=== PATIENT | male | born 1945 | race Caucasian/White ===

== ENCOUNTER → 2023-02-25 12:08 | Outpatient (BNVA) | payer MEDICARE, OTHER, SELFPAY | PROVIDERS: Visit Provider Internal Medicine Cardiovascular Disease | DX: R07.9 Chest pain, unspecified (principal); Z95.0 Presence of cardiac pacemaker; I71.40 Abdominal aortic aneurysm, without rupture, unspecified; I10 Essential (primary) hypertension; E11.9 Type 2 diabetes mellitus without complications; E78.5 Hyperlipidemia, unspecified; I48.91 Unspecified atrial fibrillation; F03.90 Unspecified dementia, unspecified severity, without behavioral disturbance, psychotic disturbance, mood disturbance, and anxiety | CPT/HCPCS: 93005; 99205 ==

== ENCOUNTER 2023-03-10 13:23 | Outpatient (CLI) | payer MEDICARE, OTHER, SELFPAY ==
--- NOTE | 2023-03-10 13:45 | USCV_ITS ---
Oleg Gaspar Age: 77 Gender: M : 1945 Exam Date: 03/10/2023 14:11 Ordering Phys: Angelito Callahan MD ([email or web address]) Technologist: CT Exam Location: [facility] [place] Indication: afib BP: 135 / 79 HR: 68 Rhythm: Sinus Technical Quality: Adequate MEASUREMENTS (Male / Female) Normal Values 2D ECHO LV Chamber Size 5.9 cm RV Chamber Size 3.7 cm LVOT Diameter 2.5 cm LV Ejection Fraction MOD 2C 53.6 % LV Ejection Fraction 2C AL 53.2 % LA Diameter 4.8 cm LA Width 5.1 cm LA Height 6.0 cm RA Width 3.5 cm RA Height 5.6 cm Aorta at Sinotubular Diameter 3.4 cm M-MODE Aortic Annulus Diameter 4.2 cm LA Ao Ratio MM 1.4 DOPPLER AV Peak Velocity 190.0 cm/s LVOT Peak Velocity 97.0 cm/s AV Area Cont Eq vti 2.5 cm squared AV Area Cont Eq pk 2.6 cm squared MV Area PHT 3.6 cm squared Mitral E to A Ratio 2.4 MV E' Velocity 49.5 cm/s Mitral E to MV E' Ratio 11.9 Mitral E to LV E' Lateral Ratio 8.7 Mitral E to LV E' Septal Ratio 18.5 TR Peak Velocity 272.0 cm/s TR Peak Gradient 29.6 mmHg TV Peak E Velocity 103.0 cm/s Right Atrial Pressure 3.0 mmHg Pulmonary Artery Systolic Pressu 32.6 mmHg FINDINGS Left Ventricle Diffuse hypokinesia of the left ventricular ejection fraction of 45% (visual).mild left ventricular hypertrophy. Grade I/IV diastolic dysfunction (abnormal relaxation filling pattern), normal to mildly elevated filling pressures. Right Ventricle Normal right ventricular size and systolic function. Catheter/pacemaker wire in the right ventricular cavity. Right Atrium Mildly dilated. Catheter/pacemaker wire in the right atrial cavity. Left Atrium Mildly dilated Mitral Valve Thickened mitral valve. Aortic Valve Thickened aortic valve. Trace to mild aortic valve regurgitation. Tricuspid Valve Trace tricuspid valve regurgitation. Pulmonic Valve No gross abnormalities noted Pericardium No pericardial effusion. Aorta Normal aortic annulus size. IVC Inferior vena cava not visualized. CONCLUSIONS Diffuse hypokinesia of the left ventricular ejection fraction of 45% (visual).mild left ventricular hypertrophy. Grade I/IV diastolic dysfunction (abnormal relaxation filling pattern), normal to mildly elevated filling pressures. Mild biatrial enlargement. Thickened aortic valve. Trace to mild aortic valve regurgitation. Trace tricuspid valve regurgitation. Estimated pulmonary artery peak systolic pressure 33 mm of Hg There is no pericardial effusion. There are no intracardiac masses. No similar previous studies are available for comparison Dr Angelito Callahan MD [facility] (Electronically Signed) Final Date: 12 March 2023 08:50 S
== END 2023-03-10 13:24 | disposition home or self-care (01) ==
PROVIDERS: PCP Family Medicine; Visit Provider Internal Medicine Cardiovascular Disease
DX: I48.91 Unspecified atrial fibrillation (principal); R06.09 Other forms of dyspnea; I51.7 Cardiomegaly; I35.8 Other nonrheumatic aortic valve disorders
CPT/HCPCS: 93306

== ENCOUNTER → 2023-04-23 11:42 | Outpatient (BNVA) | payer MEDICARE, SELFPAY | PROVIDERS: PCP Family Medicine; Visit Provider Family Medicine | DX: E11.9 Type 2 diabetes mellitus without complications (principal); I10 Essential (primary) hypertension; E78.5 Hyperlipidemia, unspecified; E53.8 Deficiency of other specified B group vitamins; E03.9 Hypothyroidism, unspecified | CPT/HCPCS: 80053; 80061; 82607; 83036; 84439; 84443; 84481 ==

== ENCOUNTER → 2023-06-22 13:20 | Outpatient (BNVA) | payer MEDICARE, SELFPAY | PROVIDERS: PCP Family Medicine; Referring Provider Family Medicine; Visit Provider Dermatology | DX: L57.0 Actinic keratosis (principal); D22.4 Melanocytic nevi of scalp and neck; L21.8 Other seborrheic dermatitis; L81.4 Other melanin hyperpigmentation; D69.2 Other nonthrombocytopenic purpura | CPT/HCPCS: 17000; 99203 ==